=== PATIENT | male | born 1985 | race Caucasian/White ===

== ENCOUNTER 2017-02-13 08:01 | Emergency (ER) | payer BC ==
[2017-02-13 08:30] VITALS: BP 135/75; PULSE 80; TEMP 97.6; BMI 33.7
[2017-02-13] MEDS ORDERED: DIPHTH,PERTUSS(ACELL),TET 0.5 ML DISP.SYRIN IM ONE (09:37)
--- NOTE | 2017-02-13 09:37 | PDOC ---
History of Present Illness - General Chief Complaint: Injury Stated Complaint: INJURY Time Seen by Provider: 02/13/17 08:44 History Source: Patient Exam Limitations: No Limitations - History of Present Illness Initial Comments: 02/13/17 09:07 CHIEF COMPLAINT: HISTORY OF PRESENT ILLNESS: Patient is a [31] -year-old [M] was walking down the stairs today and twisted left lateral ankle and felt the right patella come out and go back in. Unable to bear weight on both sides. Denies hitting his head, no loc, denies back pain or any other complaint. Unstable right knee. PMH: [Unstable right knee. ] MEDS:[None] ALLERGIES: [None] PCP: [Docs] REVIEW OF SYSTEMS: GENERAL/CONSTITUTIONAL: Awake alert and oriented HEAD, EYES, EARS, NOSE AND THROAT: No change in vision. No facial edema, no bruising. NO active bleeding. Nares intact. RESPIRATORY: No cough, wheezing, or hemoptysis. CARDIAC: Denies chest pain, no shortness of breathe. MUSCULOSKELETAL: No spinal point tenderness, Pain to the right knee edema to the left lateral ankle, . NO CVA tenderness. [No] lateral neck pain. GI/: Denies abdominal pain, no nausea or vomiting, no bloody stool, no Hematuria. SKIN : No erythema or bruising noted. No abrasion or lacerations. Edema to the left lateral ankle NEUROLOGIC: No loss of consciousness, no numbness or tingling. PHYSICAL EXAM: GENERAL: Awake and alert and oriented x3. EYES: The pupils are equal, round, and reactive to light, with clear, conjunctiva. Good extraocular movement. No nystagmus NOSE: No nasal trauma . Midface stable MOUTH: Teeth intact. EARS: The ear canals and tympanic membranes are normal without trauma. No drainage. NECK: No Lower cervical C-spine tenderness, no pain with chin to chest. CHEST: The lungs are clear without crackles, or wheezes. No subcutaneous emphysema. No crepitus. HEART: Heart is regular rhythm, with normal S1 and S2, no murmurs. ABDOMEN: The abdomen is soft and nontender with normal bowel sounds. There is no guarding or rebound. MUSCULOSKELETAL: No spinal point tenderness. No bruising or erythema. Pelvis stable. EXTREMITIES: Edema to the left lateral ankle. No visible injury to the right knee. NEUROLOGICAL:Mental status: The patient is oriented x3. No Generalized headache , Romberg [-] SKIN: Abrasion to the right arm, Edema to the left lateral ankle. Past History - Past Medical History Allergies/Adverse Reactions: Allergies Allergy/AdvReac Type Severity Reaction Status Date / Time No Known Allergies Allergy Verified 02/13/17 08:26 Home Medications: Ambulatory Orders Naproxen [Naprosyn -] 500 mg PO BID #20 tablet 02/13/17 COPD: No - Immunization History Immunization Up to Date: Yes - Suicide/Smoking/Psychosocial Hx Smoking Status: No Smoking History: Never smoked Have you smoked in the past 12 months: No Number of Cigarettes Smoked Daily: 0 Information on smoking cessation initiated: No Hx Alcohol Use: No Drug/Substance Use Hx: No Substance Use Type: None *Physical Exam - Vital Signs Last Vital Signs Temp Pulse Resp BP Pulse Ox 97.6 F 80 20 135/75 100 02/13/17 08:26 02/13/17 08:26 02/13/17 08:26 02/13/17 08:26 02/13/17 08:26 ED Treatment Course - RADIOLOGY Radiology Studies Ordered: Category Date Time Status ANKLE & FOOT-LEFT* [RAD] Stat Radiology 02/13/17 09:04 Ordered KNEE 3 POS-RIGHT [RAD] Stat Radiology 02/13/17 09:04 Ordered Medical Decision Making - Medical Decision Making 02/13/17 09:37 A/P : Patient with mechanical fall left ankle and right knee injury sent to x- ray denies any other injury 02/13/17 14:21 X-rays were negative for acute fracture dislocation. Knee immobilizer placed on , Aircast placed on ankle. Crutches for ambulation. Patient to follow-up with orthopedics if pain persists. I discussed the physical exam findings, ancillary test results and final diagnoses with the patient. I answered all of the patient's questions. The patient was satisfied with the care received and felt comfortable with the discharge plan and treatment plan. The patient will call to arrange follow-up and will return to the Emergency Department with any new, persistent or worsening symptoms. *DC/Admit/Observation/Transfer Diagnosis at time of Disposition: Knee injury Qualifiers: Encounter type: initial encounter Laterality: right Qualified Code(s): S89.91XA - Unspecified injury of right lower leg, initial encounter Injury of ankle, left Qualifiers: Encounter type: initial encounter Qualified Code(s): S99.912A - Unspecified injury of left ankle, initial encounter - Discharge Dispostion Disposition: HOME Condition at time of disposition: Stable Admit: No - Prescriptions Prescriptions: Naproxen [Naprosyn -] 500 mg PO BID #20 tablet - Referrals Referrals: Amadeo Murphy MD [Staff Physician] - - Patient Instructions Additional Instructions: 1. Please return to the emergency department with any redness, swelling, increased pain, or any other concerns. 2. Keep splint on for stability. 3. Please follow up in the office of Dr. Murphy within a week if pain persists. 4. No weightbearing 5. Ice and elevate when at rest. 6. Naprosyn for pain - Post Discharge Activity Forms/Work/School Notes: Back to Work
== END 2017-02-13 10:46 | disposition home or self-care (01) ==
LOC: JERFT 08:01
PROC: 3E0234Z Introduction of Serum, Toxoid and Vaccine into Muscle, Percutaneous Approach (ICD-10-PCS; principal; 2017-02-13)
PROC: 2W3QXYZ Immobilization of Right Lower Leg using Other Device (ICD-10-PCS; 2017-02-13)
PROC: 2W3QX1Z Immobilization of Right Lower Leg using Splint (ICD-10-PCS; 2017-02-13)
DX: S89.81XA Other specified injuries of right lower leg, initial encounter (principal); S99.811A Other specified injuries of right ankle, initial encounter; W10.8XXA Fall (on) (from) other stairs and steps, initial encounter; Y93.89 Activity, other specified; Y92.89 Other specified places as the place of occurrence of the external cause; Y99.8 Other external cause status
CPT/HCPCS: 73562-TC-RT; 73610-TC-LT; 73630-TC-LT; 90715; 99281-25

== ENCOUNTER 2019-04-07 16:33 | Emergency (ER) | payer BC, OTHER ==
[2019-04-07 16:43] VITALS: BP 125/69; PULSE 76; TEMP 98.2; BMI 33.2
[2019-04-07 21:26] LABS: URINE APPEARANCE CLEAR; URINE BILIRUBIN NEGATIVE (NEGATIVE); URINE COLOR YELLOW; URINE GLUCOSE (UA) NEGATIVE (NEGATIVE); URINE KETONE NEGATIVE (NEGATIVE); URINE LEUK ESTERASE NEGATIVE (NEGATIVE); URINE NITRITE NEGATIVE (NEGATIVE); URINE PROTEIN TRACE (NEGATIVE)
[2019-04-07 21:28] LABS: BASO % 0.8 % (0-2.0); EOS % 1.9 % (0-4.5); HEMATOCRIT 48.7 % (35.4-49); HEMOGLOBIN 16.7 GM/dL (11.7-16.9); LYMPH % 25.1 % (8-40); MCH 30.8 pg (25.7-33.7); MCHC 34.3 g/dl (32.0-35.9); MEAN CELL VOLUME 89.9 fl (80-96); MEAN PLT VOLUME 8.3 fl (7.5-11.1); MONO % 8.7 % (3.8-10.2); NEUT % 63.5 % (42.8-82.8); PLATELET COUNT 340 K/MM3 (134-434); RBC 5.42 M/mm3 (4.00-5.60); RDW 14.4 % (11.9-15.9); WHITE BLOOD COUNT 9.1 K/mm3 (4.0-10.0)
[2019-04-07 21:58] LABS: ALBUMIN 4.2 g/dl (3.4-5.0); BILIRUBIN,TOTAL 0.6 mg/dL (0.2-1); BLOOD UREA NITROGEN 25.9 mg/dL (7-18); CALCIUM 9.4 mg/dL (8.5-10.1); CREATININE 1.3 mg/dL (0.55-1.3); MAGNESIUM 2.1 mg/dL (1.8-2.4); POTASSIUM 4.5 mmol/L (3.5-5.1); TOT PROT 7.6 g/dl (6.4-8.2)
--- NOTE | 2019-04-07 22:15 | PDOC ---
History of Present Illness - General Chief Complaint: Pain, Acute Stated Complaint: LT ABD PAIN Time Seen by Provider: 04/07/19 17:05 History Source: Patient Exam Limitations: No Limitations - History of Present Illness Initial Comments: 04/07/19 22:09 34-year-old male denies past medical history presents complaining of left upper quadrant pain x3 days. 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 Denies trauma, fever, chills, nausea, vomiting, diarrhea, chest pain, shortness of breath, back pain, urinary complaints. ROS: GENERAL/CONSTITUTIONAL: No fever, chills, weakness, dizziness HEAD, EYES, EARS, NOSE AND THROAT: No changes in vision, No ear pain or discharge, No sore throat CARDIOVASCULAR: No chest pain RESPIRATORY: No shortness of breath or cough GASTROINTESTINAL: Abdominal pain, denies nausea, vomiting, diarrhea or constipation GENITOURINARY: No dysuria MUSCULOSKELETAL: No neck or back pain SKIN: No rash NEUROLOGIC: No headache, vertigo, loss of consciousness, or loss of sensation PE: GENERAL: well-appearing, NAD HEAD: NCAT EYES: Pupils equal, round and reactive to light, sclera anicteric, conjunctiva clear ENT: pharynx: no erythema, no exudate, uvula midline NECK: supple CHEST: nontender RESP: clear, no w/r/r CARDIO: rrr, no m/g/r ABD: +BS, soft, minimal tenderness to palpation over left upper quadrant, no guarding no rebound BACK: no midline spinal ttp, no CVAT EXTREMITIES: Normal range of motion, no edema NEUROLOGICAL: Normal speech, normal gait SKIN: Warm, Dry Is this a multiple visit Asthma Patient?: No Past History - Past Medical History Allergies/Adverse Reactions: Allergies Allergy/AdvReac Type Severity Reaction Status Date / Time No Known Allergies Allergy Verified 04/07/19 16:38 Home Medications: Ambulatory Orders NK [No Known Home Medication] 04/07/19 COPD: No - Immunization History Immunization Up to Date: Yes - Psycho Social/Smoking Cessation Hx Smoking Status: No Smoking History: Never smoked Have you smoked in the past 12 months: No Number of Cigarettes Smoked Daily: 0 Hx Alcohol Use: No Drug/Substance Use Hx: No Substance Use Type: None *Physical Exam - Vital Signs Last Vital Signs Temp Pulse Resp BP Pulse Ox 98.2 F 76 16 125/69 99 04/07/19 16:42 04/07/19 16:42 04/07/19 16:42 04/07/19 16:42 04/07/19 16:42 ED Treatment Course - LABORATORY CBC & Chemistry Diagram: 04/07/19 20:45 04/07/19 20:45 - ADDITIONAL ORDERS Additional order review: Laboratory Results 04/07/19 04/07/19 20:45 20:45 Sodium 141 Potassium 4.5 Chloride 106 Carbon Dioxide 28 Anion Gap 7 L BUN 25.9 H Creatinine 1.3 Est GFR (CKD-EPI)AfAm 83.68 Est GFR (CKD-EPI)NonAf 72.20 Random Glucose 81 Calcium 9.4 Magnesium 2.1 Total Bilirubin 0.6 AST 43 H ALT 42 Alkaline Phosphatase 85 Total Protein 7.6 Albumin 4.2 Urine Color Yellow Urine Appearance Clear Urine pH 6.0 Ur Specific Bynum 1.031 Urine Protein Trace Urine Glucose (UA) Negative Urine Ketones Negative Urine Blood Negative Urine Nitrite Negative Urine Bilirubin Negative Urine Urobilinogen 1.0 Ur Leukocyte Esterase Negative 04/07/19 20:45 RBC 5.42 MCV 89.9 MCHC 34.3 RDW 14.4 MPV 8.3 Neutrophils % 63.5 Lymphocytes % 25.1 Monocytes % 8.7 Eosinophils % 1.9 Basophils % 0.8 - RADIOLOGY Radiology Studies Ordered: Category Date Time Status ABDOMEN & PELVIS CT W/O CONTR [CT] Stat CT Scan 04/07/19 19:11 Completed CHEST PA & LAT [RAD] Stat Radiology 04/07/19 17:17 Completed ABDOMEN US -LIMITED [US] Stat Ultrasound 04/07/19 17:17 Completed Medical Decision Making - Medical Decision Making 04/07/19 22:15 34-year-old male denies past medical history complaining of left upper quadrant pain x3 days. Denies nausea, vomiting, fever, chills, diarrhea, shortness of breath, chest pain or any other complaint. Reviewed labs, chest x-ray results, ultrasound results and CTAP results with patient and copies provided Found to have a cyst versus solid mass to left kidney Advised to follow-up with order puller within 2 to 3 days Return precautions discussed Discharge - Discharge Information Problems reviewed: Yes Clinical Impression/Diagnosis: Abdominal pain Qualifiers: Abdominal location: left upper quadrant Qualified Code(s): R10.12 - Left upper quadrant pain Condition: Stable Disposition: HOME - Admission No - Follow up/Referral Referrals: Chris Hendricks MD [Staff Physician] - - Patient Discharge Instructions - Post Discharge Activity
--- NOTE | 2019-04-08 15:18 | EKG ---
Test Reason : Blood Pressure : / mmHG Vent. Rate : 070 BPM Atrial Rate : 070 BPM P-R Int : 156 ms QRS Dur : 084 ms QT Int : 360 ms P-R-T Axes : 055 060 -02 degrees QTc Int : 388 ms NORMAL SINUS RHYTHM POSSIBLE LEFT ATRIAL ENLARGEMENT NONSPECIFIC T WAVE ABNORMALITY NO PREVIOUS ECGS AVAILABLE Confirmed by CARROLL ARAUZ MD ([id number]) on 04/08/2019 3:18:42 PM Referred By: Confirmed By:CARROLL ARAUZ MD
== END 2019-04-07 22:30 | disposition home or self-care (01) ==
LOC: JER 16:33
DX: R10.12 Left upper quadrant pain (principal)
CPT/HCPCS: 36415; 71046-TC-FY; 74176-TC; 76705-TC; 80053; 81003; 83735; 85025; 93005; 93010; 99285-25

== ENCOUNTER 2020-10-11 09:17 | Emergency (ER) | payer OTHER ==
[2020-10-11 09:28] VITALS: BP 132/70; PULSE 88; TEMP 98; BMI 30.2
[2020-10-11] MEDS ORDERED: IBUPROFEN 600 MG TABLET (FP) PO ONE ×2 (09:36→09:39)
== END 2020-10-11 09:49 | disposition home or self-care (01) ==
LOC: JERFT 09:17
DX: M62.830 Muscle spasm of back (principal)
CPT/HCPCS: 99283-25

== ENCOUNTER 2023-11-25 07:35 | Emergency (ER) | payer OTHER ==
[2023-11-25 07:48] VITALS: BMI 32.5
[2023-11-25] MEDS ORDERED: KETOROLAC TROMETHAMINE 30 MG/1 ML VIAL ONE (08:46)
[2023-11-25 08:50] LABS: EOS % 0.8 % (0-4.5); HEMATOCRIT 43.5 % (35.4-49); HEMOGLOBIN 14.5 GM/dL (11.7-16.9); MCH 26.1 pg (25.7-33.7); MCHC 33.2 g/dl (32.0-35.9); MEAN CELL VOLUME 78.6 fl (80-96); MEAN PLT VOLUME 7.4 fl (7.5-11.1); NEUT % 79.2 % (42.8-82.8); PLATELET COUNT 366 10^3/uL (134-434); RBC 5.54 M/mm3 (4.00-5.60); RDW 16.5 % (11.9-15.9); WHITE BLOOD COUNT 9.5 K/mm3 (4.0-10.0)
[2023-11-25 08:52] LABS: URINE APPEARANCE CLEAR; URINE BILIRUBIN NEGATIVE (NEGATIVE); URINE COLOR YELLOW; URINE GLUCOSE (UA) NEGATIVE (NEGATIVE); URINE KETONE NEGATIVE (NEGATIVE); URINE LEUK ESTERASE NEGATIVE (NEGATIVE); URINE NITRITE NEGATIVE (NEGATIVE); URINE PROTEIN NEGATIVE (NEGATIVE); URINE UROBILINOGEN 0.2 mg/dL (0.2-1.0)
[2023-11-25] MEDS: KETOROLAC TROMETHAMINE 30 MG/1 ML VIAL IVPUSH ONE (08:54)
[2023-11-25] MEDS: SODIUM CHLORIDE 0.9% 500 ML INFUS.BAG IV ONE (08:54)
[2023-11-25 09:09] LABS: POTASSIUM 4.4 mmol/L (3.5-5.1)
[2023-11-25 09:10] LABS: CALCIUM 9.2 mg/dL (8.5-10.1)
[2023-11-25 09:11] LABS: ALBUMIN 3.9 g/dl (3.4-5.0); BLOOD UREA NITROGEN 18.9 mg/dL (7-18)
[2023-11-25 09:14] LABS: CREATININE 1.2 mg/dL (0.55-1.3)
[2023-11-25 09:16] LABS: BILIRUBIN,TOTAL 0.4 mg/dL (0.2-1); TOT PROT 7.1 g/dl (6.4-8.2)
[2023-11-25 12:20] VITALS: BP 141/87; PULSE 77; RESP 18; TEMP 98
== END 2023-11-25 12:29 | disposition home or self-care (01) ==
LOC: JER 07:35
PROC: 3E0333Z Introduction of Anti-inflammatory into Peripheral Vein, Percutaneous Approach (ICD-10-PCS; principal; 2023-11-25)
DX: M54.50 Low back pain, unspecified (principal); R10.32 Left lower quadrant pain
CPT/HCPCS: 36415; 72131-TC; 74177-TC; 80053; 81003; 85025; 87086; 99285-25; Q9967